=== PATIENT | female | born 1960 | race Caucasian/White ===

== ENCOUNTER 2017-04-27 21:00 | Emergency (ER) | payer MEDICAID, OTHER ==
[~2017-04-27] VITALS: Ht 157.5 cm; Wt 100.0 kg
[2017-04-27 21:40] LABS: HEMATOCRIT 43.3 % (34.6-47.8); WHITE BLOOD COUNT 13.9 x10^3/uL (3.4-10)
[2017-04-27 21:47] LABS: BLOOD UREA NITROGEN 19 mg/dL (7-18)
[2017-04-27 23:28] LABS: HEMATOCRIT 42.3 % (34.6-47.8)
[2017-04-27 23:49] VITALS: BP 123/59
== END 2017-04-28 00:20 | disposition home or self-care (01) ==
LOC: ED 21:24
DX: N93.8 Other specified abnormal uterine and vaginal bleeding (principal); I10 Essential (primary) hypertension; E11.9 Type 2 diabetes mellitus without complications; J44.9 Chronic obstructive pulmonary disease, unspecified; Z87.891 Personal history of nicotine dependence
CPT/HCPCS: 36415; 80048; 82040; 85014; 85018; 85025; 85610; 85730; 86850; 86900; 99284

== ENCOUNTER 2017-04-30 23:24 | Emergency (ER) | payer MEDICAID ==
[~2017-04-30] VITALS: Ht 162.6 cm; Wt 100.0 kg
[2017-04-30] MEDS ORDERED: OMNIPAQUE 350 MG/ML, 100ML BOTTLE ONE (23:58)
[2017-05-01] MEDS ORDERED: SODIUM CHLORIDE FLUSH 10ML SYR IVF ONE
[2017-05-01] MEDS ORDERED: MORPHINE SULFATE 4 MG/ML, 1ML IVPush PRN
[2017-05-01] MEDS ORDERED: ONDANSETRON 2MG/ML, 2ML IVPush ONE
[2017-05-01] MEDS ORDERED: SODIUM CHLORIDE 0.9% 1,000ML IVBOLUS ONE
[2017-05-01 00:03] LABS: HEMATOCRIT 39.7 % (34.6-47.8); HEMOGLOBIN 13.2 g/dL (11.7-16.4); WHITE BLOOD COUNT 13.4 x10^3/uL (3.4-10)
[2017-05-01] MEDS ORDERED: MORPHINE SULFATE 4 MG/ML, 1ML ONE (00:08)
[2017-05-01 00:13] LABS: ASPARTATE AMINO TRANSFERASE 15 U/L (15-37); BLOOD UREA NITROGEN 18 mg/dL (7-18)
[2017-05-01] MEDS ORDERED: DIPHENHYDRAMINE 25 MG CAPSULE PO ONE (02:00)
[2017-05-01] MEDS ORDERED: DIPHENHYDRAMINE 25 MG CAPSULE ONE (02:14)
[2017-05-01 02:39] VITALS: BP 88/56
== END 2017-05-01 02:17 | disposition home or self-care (01) ==
LOC: ED 23:59
DX: K42.9 Umbilical hernia without obstruction or gangrene (principal); N93.8 Other specified abnormal uterine and vaginal bleeding; E11.9 Type 2 diabetes mellitus without complications; I10 Essential (primary) hypertension; J44.9 Chronic obstructive pulmonary disease, unspecified; Z79.01 Long term (current) use of anticoagulants
CPT/HCPCS: 36415; 74177; 80053; 85025; 85610; 85730; 96361; 96374; 96375; 99285; J2405; J7030; Q0163; Q9967

== ENCOUNTER 2021-03-28 23:01 | Inpatient (IN) | payer MEDICARE, MEDICAID ==
[~2021-03-28] VITALS: Ht 160 cm; Wt 84.9 kg
--- NOTE | 2021-03-28 23:23 | NUR ---
PT KVNG FROM [facility] FOR COVID, PTS ROOM AIR SATS ON ARRIVAL WERE 80%, PT CONFUSED, PT KNOWS NAME AND BIRTHDATE, PT THINKS SHE IS IN [facility] AND THE YEAR IS 1929, PT IS ON HOME O2 AT 3LP BUT IS NON COMPLIANT, PT ON MULTIPLE MEDCATIONS AND IS NON COMPLIANT WITH THEM WELL, PT HERE FOR ABGS AND TREATMENT FOR COVID, PT ATTACHED TO CONTINUOUS MONITORING AND PLACED ON 4LPM NASAL CANULA OXYGEN AND IS SATTNG AT 93%
[2021-03-29] MEDS ORDERED: SODIUM CHLORIDE 0.9%, 500ML IVBOLUS ONE
[2021-03-29] MEDS ORDERED: CEFTRIAXONE 1,000 MG in DEXTROSE 5% 50 ML IVPB ONE
[2021-03-29] MEDS ORDERED: ACETAMINOPHEN 325 MG TABLET PO ONE
[2021-03-29] MEDS ORDERED: DOXYCYCLINE 100MG TABLET PO ONE
[2021-03-29] MEDS ORDERED: ACETAMINOPHEN 500 MG TABLET ONE (00:10)
[2021-03-29] MEDS ORDERED: DOXYCYCLINE 100MG TABLET ONE (00:11)
[2021-03-29 00:16] LABS: BASOPHILS % (AUTO) 0 % (0-1); EOSINOPHILS % (AUTO) 0 % (1-7); LYMPHOCYTES % (AUTO) 13 % (22-44); MEAN CORPUSCULAR HEMOGLOBIN 32.8 pg (27.0-34.8); MEAN CORPUSCULAR HGB CONC 34.1 g/dL (32.4-35.8); MEAN PLATELET VOLUME 9.4 fL (7.4-10.4); MONOCYTES % (AUTO) 7 % (2-9); NEUTROPHILS % (AUTO) 80 % (42-75); PLATELET COUNT 140 x10^3/uL (130-400); RED BLOOD COUNT 4.62 x10^6/uL (3.82-5.3); RED CELL DISTRIBUTION WIDTH 14.5 % (9.6-15.2)
[2021-03-29 00:30] LABS: D-DIMER (DIC) 1.15 ug/mlFEU (0.00-0.52)
[2021-03-29 00:32] LABS: ALKALINE PHOSPHATASE 75 U/L (45-117); BILIRUBIN,TOTAL 0.4 mg/dL (0.2-1.0); PROTIME 10.5 Seconds (9.6-11.5)
[2021-03-29 00:39] LABS: ANION GAP 11 mmol/L (5-15); CALCIUM 8.1 mg/dL (8.5-10.1); CHLORIDE 104 mmol/L (98-107)
[2021-03-29 00:40] LABS: ALANINE AMINOTRANSFERASE 60 U/L (12-78); ALBUMIN 2.7 g/dL (3.4-5.0)
[2021-03-29] MEDS ORDERED: BISACODYL 10 MG SUPP PR PRN (01:00)
[2021-03-29] MEDS ORDERED: ACETAMINOPHEN 325 MG TABLET PO PRN (01:00)
[2021-03-29] MEDS ORDERED: ONDANSETRON 2MG/ML, 2ML IVPush PRN (01:00)
[2021-03-29] MEDS ORDERED: ONDANSETRON ODT 4 MG PO PRN (01:00)
[2021-03-29] MEDS ORDERED: MELATONIN 5 MG TABLET PO PRN (01:00)
[2021-03-29] MEDS ORDERED: POLYETHYLENE GLYCOL 17 GM PACKET PO PRN (01:00)
[2021-03-29] MEDS ORDERED: DOCUSATE 100 MG CAPSULE PO PRN (01:00)
[2021-03-29] MEDS ORDERED: LABETALOL 5MG/ML, 20ML IVPush PRN (01:00)
[2021-03-29] MEDS ORDERED: hydrALAzine 20 MG/ML, 1ML IVPush PRN (01:00)
[2021-03-29] MEDS ORDERED: NS + 20MEQ KCL 1,000 ML IV SCH (01:00)
[2021-03-29] MEDS ORDERED: POTASSIUM CHLORIDE 20 MEQ TAB.ER.PRT PO ONE (01:00)
[2021-03-29] MEDS ORDERED: DEXTROSE 50%, 50ML SYRINGE IVPush PRN (01:30)
[2021-03-29] MEDS ORDERED: DEXTROSE 4 GM TAB.CHEW PO PRN (01:30)
[2021-03-29] MEDS ORDERED: GLUCAGON 1 MG IM PRN (01:30)
[2021-03-29 04:08] VITALS: BP 100/60
[2021-03-29] MEDS: ALBUTEROL-IPRATROPIUM MDI INH INH SCH ×4 (06:41→20:36)
[2021-03-29] MEDS: INSULIN LISPRO 100 UNITS/ML, PEN SQ-INSULIN SCH ×4 (07:00→23:21)
[2021-03-29 08:35] VITALS: BP 90/59
[2021-03-29] MEDS: SODIUM CHLORIDE FLUSH 10ML SYR IVF SCH ×2 (10:16→20:38)
[2021-03-29] MEDS: FLUTICASONE/VILANTEROL 200-25MCG/INH INH SCH (10:16)
[2021-03-29] MEDS: ZINC SULFATE 220 MG CAPSULE PO SCH (10:17)
[2021-03-29] MEDS: DEXAMETHASONE 4 MG/ML, 1ML IVPush SCH (10:17)
[2021-03-29] MEDS: DOXYCYCLINE 100MG TABLET PO SCH ×2 (10:17→20:36)
[2021-03-29] MEDS: CHOLECALCIFEROL 5,000u TAB PO SCH (10:17)
[2021-03-29] MEDS: ASCORBIC ACID 500 MG TABLET PO SCH ×2 (10:17→20:37)
[2021-03-29] MEDS: THIAMINE 100MG TABLET PO SCH ×2 (10:17→20:36)
[2021-03-29 12:47] VITALS: BP 92/54
[2021-03-29] MEDS: RIVAROXABAN 20 MG TABLET PO SCH (17:55)
[2021-03-29 19:46] VITALS: BP 99/60
[2021-03-30] MEDS: CEFTRIAXONE 1,000 MG in DEXTROSE 5% 50 ML IVPB SCH (00:14)
[2021-03-30 01:36] VITALS: BP 107/71
[2021-03-30 05:46] LABS: BASOPHILS % (AUTO) 0 % (0-1); EOSINOPHILS % (AUTO) 0 % (1-7); LYMPHOCYTES % (AUTO) 15 % (22-44); MEAN CORPUSCULAR HEMOGLOBIN 32.6 pg (27.0-34.8); MEAN CORPUSCULAR HGB CONC 33.2 g/dL (32.4-35.8); MEAN PLATELET VOLUME 9.5 fL (7.4-10.4); MONOCYTES % (AUTO) 8 % (2-9); NEUTROPHILS % (AUTO) 77 % (42-75); PLATELET COUNT 159 x10^3/uL (130-400); RED BLOOD COUNT 4.41 x10^6/uL (3.82-5.3); RED CELL DISTRIBUTION WIDTH 14.8 % (9.6-15.2)
[2021-03-30 06:00] LABS: ANION GAP 9 mmol/L (5-15); CALCIUM 8.9 mg/dL (8.5-10.1); CHLORIDE 113 mmol/L (98-107); CREATININE 0.73 mg/dL (0.55-1.02)
[2021-03-30] MEDS: ALBUTEROL-IPRATROPIUM MDI INH INH SCH ×4 (06:13→20:50)
[2021-03-30] MEDS: INSULIN LISPRO 100 UNITS/ML, PEN SQ-INSULIN SCH ×4 (07:00→20:51)
[2021-03-30 08:03] VITALS: BP 96/52
[2021-03-30] MEDS: FLUTICASONE/VILANTEROL 200-25MCG/INH INH SCH (09:02)
[2021-03-30] MEDS: SODIUM CHLORIDE FLUSH 10ML SYR IVF SCH ×2 (09:03→20:51)
[2021-03-30] MEDS: DEXAMETHASONE 4 MG/ML, 1ML IVPush SCH (09:03)
[2021-03-30] MEDS: ASCORBIC ACID 500 MG TABLET PO SCH ×2 (09:04→20:51)
[2021-03-30] MEDS: THIAMINE 100MG TABLET PO SCH ×2 (09:04→20:51)
[2021-03-30] MEDS: ZINC SULFATE 220 MG CAPSULE PO SCH (09:04)
[2021-03-30] MEDS: DOXYCYCLINE 100MG TABLET PO SCH ×2 (09:04→20:51)
[2021-03-30] MEDS: CHOLECALCIFEROL 5,000u TAB PO SCH (09:04)
[2021-03-30 13:09] VITALS: BP 101/65
[2021-03-30] MEDS ORDERED: METF750T42 PO (15:44)
[2021-03-30] MEDS ORDERED: EMPA25TA PO (15:44)
[2021-03-30] MEDS ORDERED: RIVA20TA PO (15:44)
[2021-03-30] MEDS ORDERED: LINA5TAB PO (15:44)
[2021-03-30] MEDS ORDERED: ATOR20TA37 PO (15:44)
[2021-03-30] MEDS ORDERED: FLUT1DIS3 INH (15:44)
[2021-03-30] MEDS ORDERED: FURO-93 PO (15:44)
[2021-03-30] MEDS ORDERED: LOSA50TA2 PO (15:44)
[2021-03-30] MEDS ORDERED: MONT10TA6 PO (15:44)
[2021-03-30] MEDS ORDERED: DIGO250T12 PO (15:44)
[2021-03-30] MEDS: RIVAROXABAN 20 MG TABLET PO SCH (16:57)
[2021-03-30 18:38] VITALS: BP 110/69
[2021-03-30] MEDS: ATORVASTATIN 20 MG TABLET PO SCH (20:51)
[2021-03-30] MEDS: MONTELUKAST 10 MG TABLET PO SCH (20:51)
[2021-03-31] MEDS: CEFTRIAXONE 1,000 MG in DEXTROSE 5% 50 ML IVPB SCH (00:45)
[2021-03-31 01:37] VITALS: BP 115/63
[2021-03-31] MEDS: ALBUTEROL-IPRATROPIUM MDI INH INH SCH ×4 (04:49→22:08)
[2021-03-31] MEDS: INSULIN LISPRO 100 UNITS/ML, PEN SQ-INSULIN SCH ×4 (07:00→20:55)
[2021-03-31] MEDS: FLUTICASONE/VILANTEROL 200-25MCG/INH INH SCH (08:37)
[2021-03-31] MEDS: ASCORBIC ACID 500 MG TABLET PO SCH ×2 (08:38→20:48)
[2021-03-31] MEDS: DIGOXIN 0.25 MG TABLET PO SCH (08:40)
[2021-03-31] MEDS: metFORMIN 500 MG TABLET PO SCH (08:40)
[2021-03-31] MEDS: ZINC SULFATE 220 MG CAPSULE PO SCH (08:41)
[2021-03-31] MEDS: THIAMINE 100MG TABLET PO SCH ×2 (08:41→20:48)
[2021-03-31] MEDS: CHOLECALCIFEROL 5,000u TAB PO SCH (08:42)
[2021-03-31] MEDS: SODIUM CHLORIDE FLUSH 10ML SYR IVF SCH ×2 (08:42→20:47)
[2021-03-31] MEDS: LINAGLIPTIN 5 MG TAB PO SCH (08:42)
[2021-03-31] MEDS: DOXYCYCLINE 100MG TABLET PO SCH ×2 (08:42→20:47)
[2021-03-31] MEDS: DEXAMETHASONE 4 MG/ML, 1ML IVPush SCH (08:46)
[2021-03-31 08:56] VITALS: BP 103/64
[2021-03-31 13:35] VITALS: BP 110/96
[2021-03-31] MEDS: RIVAROXABAN 20 MG TABLET PO SCH (16:43)
[2021-03-31 20:12] VITALS: BP 148/82
[2021-03-31] MEDS: MONTELUKAST 10 MG TABLET PO SCH (20:47)
[2021-03-31] MEDS: ATORVASTATIN 20 MG TABLET PO SCH (20:47)
[2021-04-01] MEDS: CEFTRIAXONE 1,000 MG in DEXTROSE 5% 50 ML IVPB SCH (00:09)
[2021-04-01 00:11] VITALS: BP 135/75
[2021-04-01] MEDS: ALBUTEROL-IPRATROPIUM MDI INH INH SCH ×4 (05:28→21:22)
[2021-04-01 06:48] LABS: BASOPHILS % (AUTO) 0 % (0-1); EOSINOPHILS % (AUTO) 0 % (1-7); LYMPHOCYTES % (AUTO) 10 % (22-44); MEAN CORPUSCULAR HEMOGLOBIN 32.5 pg (27.0-34.8); MEAN CORPUSCULAR HGB CONC 33.7 g/dL (32.4-35.8); MEAN PLATELET VOLUME 9.6 fL (7.4-10.4); MONOCYTES % (AUTO) 15 % (2-9); NEUTROPHILS % (AUTO) 75 % (42-75); PLATELET COUNT 192 x10^3/uL (130-400); RED BLOOD COUNT 4.31 x10^6/uL (3.82-5.3); RED CELL DISTRIBUTION WIDTH 14.4 % (9.6-15.2)
[2021-04-01 06:55] LABS: ALBUMIN 2.3 g/dL (3.4-5.0); ANION GAP 7 mmol/L (5-15); CHLORIDE 115 mmol/L (98-107)
[2021-04-01 06:59] LABS: ALANINE AMINOTRANSFERASE 45 U/L (12-78); ALKALINE PHOSPHATASE 70 U/L (45-117); BILIRUBIN,TOTAL 0.5 mg/dL (0.2-1.0); CREATININE 0.55 mg/dL (0.55-1.02); TOTAL PROTEIN 6.2 g/dL (6.4-8.2)
[2021-04-01] MEDS: INSULIN LISPRO 100 UNITS/ML, PEN SQ-INSULIN SCH ×4 (07:00→21:24)
[2021-04-01 07:51] VITALS: BP 119/70
[2021-04-01] MEDS: DEXAMETHASONE 4 MG/ML, 1ML IVPush SCH (08:01)
[2021-04-01] MEDS: metFORMIN 500 MG TABLET PO SCH (08:02)
[2021-04-01] MEDS: SODIUM CHLORIDE FLUSH 10ML SYR IVF SCH ×2 (08:02→21:23)
[2021-04-01] MEDS: LINAGLIPTIN 5 MG TAB PO SCH (08:02)
[2021-04-01] MEDS: DIGOXIN 0.25 MG TABLET PO SCH (08:02)
[2021-04-01] MEDS: ZINC SULFATE 220 MG CAPSULE PO SCH (08:02)
[2021-04-01] MEDS: DOXYCYCLINE 100MG TABLET PO SCH ×2 (08:02→21:22)
[2021-04-01] MEDS: ASCORBIC ACID 500 MG TABLET PO SCH ×2 (08:03→21:22)
[2021-04-01] MEDS: THIAMINE 100MG TABLET PO SCH ×2 (08:03→21:22)
[2021-04-01] MEDS: CHOLECALCIFEROL 5,000u TAB PO SCH (08:03)
[2021-04-01] MEDS: FLUTICASONE/VILANTEROL 200-25MCG/INH INH SCH (08:04)
[2021-04-01 12:22] VITALS: BP 136/80
[2021-04-01] MEDS: RIVAROXABAN 20 MG TABLET PO SCH (16:59)
[2021-04-01] MEDS: MONTELUKAST 10 MG TABLET PO SCH (21:22)
[2021-04-01] MEDS: ATORVASTATIN 20 MG TABLET PO SCH (21:23)
[2021-04-01 21:32] VITALS: BP 156/89
[2021-04-02 00:40] VITALS: BP 147/91
[2021-04-02] MEDS: CEFTRIAXONE 1,000 MG in DEXTROSE 5% 50 ML IVPB SCH (00:41)
[2021-04-02] MEDS: ALBUTEROL-IPRATROPIUM MDI INH INH SCH ×2 (05:58→11:11)
[2021-04-02] MEDS: INSULIN LISPRO 100 UNITS/ML, PEN SQ-INSULIN SCH ×2 (07:31→11:10)
[2021-04-02 07:32] VITALS: BP 134/63
[2021-04-02] MEDS: FLUTICASONE/VILANTEROL 200-25MCG/INH INH SCH (10:06)
[2021-04-02] MEDS: SODIUM CHLORIDE FLUSH 10ML SYR IVF SCH (10:07)
[2021-04-02] MEDS: DEXAMETHASONE 4 MG/ML, 1ML IVPush SCH (10:08)
[2021-04-02] MEDS: ASCORBIC ACID 500 MG TABLET PO SCH (10:11)
[2021-04-02] MEDS: ZINC SULFATE 220 MG CAPSULE PO SCH (10:11)
[2021-04-02] MEDS: metFORMIN 500 MG TABLET PO SCH (10:12)
[2021-04-02] MEDS: DOXYCYCLINE 100MG TABLET PO SCH (10:13)
[2021-04-02] MEDS: THIAMINE 100MG TABLET PO SCH (10:13)
[2021-04-02] MEDS: LINAGLIPTIN 5 MG TAB PO SCH (10:13)
[2021-04-02] MEDS: DIGOXIN 0.25 MG TABLET PO SCH (10:13)
[2021-04-02] MEDS: CHOLECALCIFEROL 5,000u TAB PO SCH (10:13)
[2021-04-02] MEDS ORDERED: DOXY100T23 PO (11:04)
[2021-04-02] MEDS ORDERED: CEFD300C37 PO (11:04)
[2021-04-02] MEDS ORDERED: DEXA6TAB6 PO (11:04)
[2021-04-02] MEDS ORDERED: ASCO500T9 PO (11:04)
[2021-04-02] MEDS ORDERED: ZINC220C8 PO (11:04)
[2021-04-02 12:35] VITALS: BP 145/82
== END 2021-04-02 14:43 | disposition home or self-care (01) | DRG 177 ==
LOC: ED 03-29 01:47 → EDIP 03-29 01:51 → 3N 03-29 03:02
PROVIDERS: ADMIT Internal Medicine; ATTEND Internal Medicine
DX: U07.1 COVID-19 (principal); J96.21 Acute and chronic respiratory failure with hypoxia; J12.82 Pneumonia due to coronavirus disease 2019; G93.41 Metabolic encephalopathy; E87.1 Hypo-osmolality and hyponatremia; E87.2 Acidosis; J44.0 Chronic obstructive pulmonary disease with (acute) lower respiratory infection; I48.91 Unspecified atrial fibrillation; Z79.01 Long term (current) use of anticoagulants; E87.6 Hypokalemia; E11.9 Type 2 diabetes mellitus without complications; F12.90 Cannabis use, unspecified, uncomplicated; I11.9 Hypertensive heart disease without heart failure; Z83.3 Family history of diabetes mellitus; Z87.891 Personal history of nicotine dependence; Z91.14 Patient's other noncompliance with medication regimen; Z99.81 Dependence on supplemental oxygen
CPT/HCPCS: 36415; 70450; 71045; 80048; 80053; 82728; 82962; 83605; 83615; 83735; 84100; 84145; 85025; 85049; 85379; 85384; 85610; 85730; 86140; 87040; 96374; 99291; G0378; J0696; J1100; J3480; J1815